=== PATIENT | male | born 1980 | race Caucasian/White ===

== ENCOUNTER 2016-12-12 22:44 | Emergency (ER) | payer SELFPAY ==
[~2016-12-12] VITALS: Ht 162.6 cm; Wt 82.5 kg
[2016-12-12 22:56] VITALS: Ht 162.6 cm; Wt 82.5 kg
[2016-12-13] MEDS ORDERED: LIDOCAINE 1%/EPI 30 ML INJ INJ STA
[2016-12-13] MEDS ORDERED: HYDROCODONE/APAP (5/325) TAB PO ONE (01:00)
[2016-12-13] MEDS ORDERED: LIDOCAINE 2%/EPI MPF (SDV) 20 ML VIAL INJ SCH (01:00)
--- NOTE | 2016-12-13 02:15 | RADRPT ---
PROCEDURE: CT head, without contrast. CLINICAL INDICATION: Blunt trauma to the left head. TECHNIQUE: Noncontrast CT examination of the head, with axial, sagittal and coronal reformatted im ages. Automated dose exposure control was employed. CTDI: 43.68 and DLP: 720.23. COMPARISON: None. FINDINGS: High left subcutaneous scalp hematoma and laceration. Note acute hemorrhage. Subarachnoid spaces are substantially preserved and symmetric. Ventricles are unremarkable. No mass effect. Carl-white matter distinction is preserved without evident decreased attenuation t o suggest acute or recent infarct. Sinuses and osseous structures are unremarkable. IMPRESSION: 1. High left subcutaneous scalp hematoma and laceration. 2. Otherwise, no acute process in the head. RPTAT: UU Physician Sarath Date Time Electronically viewed and signed by Physician Sarath on 12/13/2016 02:15 /
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
[2016-12-13] MEDS ORDERED: ACET500C5 PO (02:27)
[2016-12-13] MEDS ORDERED: CEPH-443 PO (02:27)
[2016-12-13 02:35] VITALS: PULSE 85; RESP 18; TEMP 98.1
== END 2016-12-13 02:40 | disposition home or self-care (01) ==
LOC: FTE 22:44
DX: S01.01XA Laceration without foreign body of scalp, initial encounter (principal); S09.90XA Unspecified injury of head, initial encounter; W01.198A Fall on same level from slipping, tripping and stumbling with subsequent striking against other object, initial encounter; Y92.039 Unspecified place in apartment as the place of occurrence of the external cause
CPT/HCPCS: 70450

== ENCOUNTER 2016-12-14 11:00 | Emergency (ER) | payer SELFPAY ==
[~2016-12-14] VITALS: Ht 165.1 cm; Wt 80.5 kg
[~2016-12-14 11:00] MED LIST: ACET500C5 PO; CEPH-443 PO
[2016-12-14 11:10] VITALS: Ht 165.1 cm; Wt 80.5 kg
--- NOTE | 2016-12-14 12:31 | ERD ---
ER Documentation Chief Complaint Date/Time DATE: 12/14/16 TIME: 12:23 Chief Complaint 2 day wound check HPI This 36-year-old male presents to the emergency department today for a wound check of a laceration that he sustained 2 days ago on the top of his head after reportedly falling into a railing while doing some magnus in his house. States he has not picked up his prescription for Keflex. Denies any fevers or chills, dizziness, blurred vision, headache. ROS All systems reviewed and are negative except as per history of present illness. Medications Home Meds Active Scripts Acetaminophen* (Tylophen*) 500 Mg Capsule, 1 CAP PO Q6H Y for PAIN AND OR ELEVATED TEMP, #30 CAP Prov:JANUSZ GREEN PA-C 12/13/16 Cephalexin* (Keflex*) 500 Mg Capsule, 500 MG PO QID for 7 Days, CAP Prov:JANUSZ GREEN PA-C 12/13/16 Allergies Allergies: Coded Allergies: No Known Allergy (Unverified , 12/13/16) PMhx/Soc Medical and Surgical Hx: pt denies Medical Hx, pt denies Surgical Hx Hx Alcohol Use: No Hx Substance Use: No Hx Tobacco Use: No Smoking Status: Never smoker Physical Exam Vitals Vital Signs Date Time Temp Pulse Resp B/P Pulse Ox O2 Delivery O2 Flow Rate FiO2 12/14/16 11:10 98.1 93 18 136/81 98 Physical Exam Const: No acute distress Head: Evidence of 11 sutures placed top of head. Wound appears to be healing well and well approximated. No evidence of purulent drainage. Abrasion left side of face close to left eye Eyes: Normal Conjunctiva. PERRLA. EOM intact. Ecchymosis left orbit. Mild tenderness palpation. ENT: Normal External Ears, Nose and Mouth. Mild tenderness to palpation nasal bone Neck: Full range of motion..~ No meningismus. Resp: Clear to auscultation bilaterally Cardio: Regular rate and rhythm, no murmurs Skin: Ecchymosis around left orbit. Evidence of 11 sutures placed top of head. Wound appears to be healing well and well approximated. Evidence of dried blood. No purulent drainage. Back: No midline or flank tenderness Ext: No cyanosis, or edema Neur: Awake and alert Psych: Normal Mood and Affect Procedures/MDM This a 36-year-old male who presents the emergency department today for a wound check of sutures he had placed on the top of his head 2 days ago after sustaining an injury in which he reportedly fell into a railing. I did see this patient and suture the patient 2 days ago. Patient has not yet picked up his prescription for Keflex. He has been afebrile and otherwise well- appearing. There is no purulent drainage wound appears to be healing well and is well approximated. Low suspicion for sepsis, deep space infection however I have encouraged the patient to go and sisal picker his prescription for Keflex. Patient had initially refused a head CT scan 2 days ago however eventually agreed to it. There was no evidence of acute hemorrhage. There was evidence of a hematoma. Today on physical exam there is evidence of orbital ecchymosis around his left eye with mild tenderness palpation as well as along his nasal bones. This was not evident on patient's initial exam and patient did not report any facial pain initial presentation. I explained to the patient that he may benefit from a CT scan of his facial bones given the trauma however patient has refused. I have explained to the patient I cannot rule out any facial fracture at this time without evidence of the CT scan. Patient understood. Patient agreed to sign an AMA form refusal for the CT scan. Patient was instructed to return in the next 5-6 days for suture removal. Patient understood. Departure Diagnosis: Primary Impression: Encounter for wound re-check Condition: Fair Patient Instructions: [place] Form- 1, Wound Check, Lac F/U (No Infection) Referrals: [facility] YOU HAVE RECEIVED A MEDICAL SCREENING EXAM AND THE RESULTS INDICATE THAT YOU DO NOT HAVE A CONDITION THAT REQUIRES URGENT TREATMENT IN THE EMERGENCY DEPARTMENT. FURTHER EVALUATION AND TREATMENT OF YOUR CONDITION CAN WAIT UNTIL YOU ARE SEEN IN YOUR DOCTORS OFFICE WITHIN THE NEXT 1-2 DAYS. IT IS YOUR RESPONSIBILITY TO MAKE AN APPOINTMENT FOR FOLOW-UP CARE. IF YOU HAVE A PRIMARY DOCTOR --you should call your primary doctor and schedule an appointment IF YOU DO NOT HAVE A PRIMARY DOCTOR YOU CAN CALL OUR PHYSICIAN REFERRAL HOTLINE AT IF YOU CAN NOT AFFORD TO SEE A PHYSICIAN YOU CAN CHOSE FROM THE FOLLOWING [facility] CL[facility]ICS [facility] [address] [facility]. [facility] [address] [facility]. [facility] [address] [facility]. [facility] [address] [facility]. [facility] [address] [facility]. [facility]. [address] Additional Instructions: Call your primary care doctor TOMORROW for an appointment during the next 1-2 days.See the doctor sooner or return here if your condition worsens before your appointment time. Suture removal in 5-6 days cupola worker your prescription for antibiotic JANUSZ GREEN PA-C December 14, 2016 12:31
== END 2016-12-14 12:38 | disposition home or self-care (01) ==
LOC: FTE 11:00
DX: Z48.01 Encounter for change or removal of surgical wound dressing (principal)
CPT/HCPCS: 99281

== ENCOUNTER 2016-12-19 14:58 | Emergency (ER) | payer MEDICAID ==
[~2016-12-19] VITALS: Ht 167.6 cm; Wt 78.0 kg
[2016-12-19 15:02] VITALS: Ht 167.6 cm; Wt 78.0 kg
--- NOTE | 2016-12-19 16:45 | ERD ---
ER Documentation Chief Complaint Date/Time DATE: 12/19/16 TIME: 16:44 Chief Complaint scalp suture removal HPI 36-year-old male presents for evaluation for suture removal in scalp laceration sustained 6 days ago. He denies fevers, vomiting, shortness of the chest pain. ROS All systems reviewed and are negative except as per history of present illness. Medications Home Meds Active Scripts Acetaminophen* (Tylophen*) 500 Mg Capsule, 1 CAP PO Q6H Y for PAIN AND OR ELEVATED TEMP, #30 CAP Prov:JANUSZ GREEN PA-C 12/13/16 Cephalexin* (Keflex*) 500 Mg Capsule, 500 MG PO QID for 7 Days, CAP Prov:JANUSZ GREEN PA-C 12/13/16 Allergies Allergies: Coded Allergies: No Known Allergy (Unverified , 12/13/16) PMhx/Soc Medical and Surgical Hx: pt denies Medical Hx, pt denies Surgical Hx Hx Alcohol Use: No Hx Substance Use: No Hx Tobacco Use: No Physical Exam Vitals Vital Signs Date Time Temp Pulse Resp B/P Pulse Ox O2 Delivery O2 Flow Rate FiO2 12/19/16 15:02 97.7 76 18 124/76 99 Physical Exam Const: [] Alert, not ill-appearing. Head: There is a large hematoma on the left frontal area of the scalp with sutures intact. Is no erythema, bleeding or discharge appreciated. Eyes: Normal Conjunctiva ENT: Normal External Ears, Nose and Mouth. Neck: Full range of motion..~ No meningismus. Resp: Clear to auscultation bilaterally Cardio: Regular rate and rhythm, no murmurs Abd: Soft, non tender, non distended. Normal bowel sounds Skin: No petechiae or rashes Back: No midline or flank tenderness Ext: No cyanosis, or edema Neur: Awake and alert Psych: Normal Mood and Affect Procedures/MDM Patient presents for evaluation of a wound on his scalp. It appears to really for suture removal given the significant hematoma underneath as it likely at risk for dehiscence. I'm recommending additional 4 more days of sutures in removing them a reevaluation and for days. He should return sooner for fevers, redness, new or worsening symptoms. Patient displays no signs or symptoms of occasions of head injury. There is no evidence of bacterial infection. Departure Diagnosis: Primary Impression: Suture check Condition: Stable Patient Instructions: Suture Care Additional Instructions: Suture removal proximately 4 more days. MAHSA ALVARADO MD December 19, 2016 16:45
== END 2016-12-19 17:26 | disposition home or self-care (01) ==
LOC: FTE 14:58
DX: Z48.01 Encounter for change or removal of surgical wound dressing (principal)
CPT/HCPCS: 99281

== ENCOUNTER 2016-12-26 16:19 | Emergency (ER) | payer MEDICAID ==
[~2016-12-26] VITALS: Ht 165.1 cm; Wt 72.0 kg
[2016-12-26 16:23] VITALS: Ht 165.1 cm; Wt 72.0 kg
--- NOTE | 2016-12-26 17:02 | ERD ---
ER Documentation Chief Complaint Date/Time DATE: 12/26/16 TIME: 16:53 Chief Complaint pt bib self for suture removal to head HPI Patient is a 36-year-old male who presents emergency department for suture removal. Patient sustained a laceration on 12-12-16 after slip and fall injury. Patient denies any bleeding or discharge from the affected area. Patient denies any headache, nausea, vomiting, dizziness, blurry vision, confusion, sleepiness or loss of consciousness. Patient denies any complaints at this time. She is up-to-date with his tetanus vaccination. ROS All systems reviewed and are negative except as per history of present illness. Medications Home Meds Active Scripts Acetaminophen* (Tylophen*) 500 Mg Capsule, 1 CAP PO Q6H Y for PAIN AND OR ELEVATED TEMP, #30 CAP Prov:JANUSZ GREEN PA-C 12/13/16 Cephalexin* (Keflex*) 500 Mg Capsule, 500 MG PO QID for 7 Days, CAP Prov:JANUSZ GREEN PA-C 12/13/16 Allergies Allergies: Coded Allergies: No Known Allergy (Unverified , 12/13/16) PMhx/Soc Medical and Surgical Hx: pt denies Medical Hx, pt denies Surgical Hx History of Surgery: No Anesthesia Reaction: No Hx Neurological Disorder: No Hx Respiratory Disorders: No Hx Cardiac Disorders: No Hx Psychiatric Problems: No Hx Miscellaneous Medical Probl: No Hx Alcohol Use: No Hx Substance Use: No Hx Tobacco Use: No FmHx Family History: No diabetes Physical Exam Vitals Vital Signs Date Time Temp Pulse Resp B/P Pulse Ox O2 Delivery O2 Flow Rate FiO2 12/26/16 16:23 97.3 80 16 156/88 98 Physical Exam GENERAL: Well-developed, well-nourished male. Appears in no acute distress. HEAD: Normocephalic, atraumatic. 6 cm laceration noted to the left parietal scalp. No wound dehiscence noted. No redness, swelling, active bleeding or discharge noted. Wound appears to be scabbed over with [address] EYES: Pupils are equally reactive bilaterally. EOMs grossly intact. No conjunctival erythema. ENT: Moist mucous membranes. No uvula deviation. No kissing tonsils. NECK: Supple. No meningismus. Normal range of motion of the neck. LUNG: Clear to auscultation bilaterally. No rhonchi, wheezing, rales or coarse breath sounds. HEART: Regular rate and rhythm. No murmurs, rubs or gallops.. EXTREMITIES: Equal pulses bilaterally. No peripheral clubbing, cyanosis or edema. No unilateral leg swelling. NEUROLOGIC: Alert and oriented. Moving all four extremities without any difficulty. Normal speech. Steady gait. SKIN: Normal color. Warm and dry. No rashes or lesions. Procedures/MDM MEDICAL DECISION MAKING: This is a 36-year-old male who presents for suture removal after sustaining a laceration to his head on 12-12-16.. Vital signs were reviewed. Patient is afebrile. The wound appears to be healing well with no concerns of acute infection at this time. No wound drainage or wound dehiscence noted. 11 sutures were removed without any difficulty. Wound remained intact. Tetanus is up-to-date. Post-procedural wound care was discussed with the patient. At this time the patient's presentation is consistent with suture removal. Low suspicion for wound dehiscence, cellulitis, abscess, vascular injury, or neurologic injury. DISCHARGE: At this time, the patient is stable for discharge and outpatient management. Post-procedural wound care was discussed with the patient. I have instructed the patient to promptly return to the ER for any new or worsening symptoms including increasing pain, fever, warmth, redness or swelling. The patient and/ or family expressed understanding of and agreement with this plan. All questions were answered. Home care instructions were provided. Departure Diagnosis: Primary Impression: Encounter for removal of sutures Condition: Stable Patient Instructions: Suture Removal, No Complication Referrals: [facility] YOU HAVE RECEIVED A MEDICAL SCREENING EXAM AND THE RESULTS INDICATE THAT YOU DO NOT HAVE A CONDITION THAT REQUIRES URGENT TREATMENT IN THE EMERGENCY DEPARTMENT. FURTHER EVALUATION AND TREATMENT OF YOUR CONDITION CAN WAIT UNTIL YOU ARE SEEN IN YOUR DOCTORS OFFICE WITHIN THE NEXT 1-2 DAYS. IT IS YOUR RESPONSIBILITY TO MAKE AN APPOINTMENT FOR FOLOW-UP CARE. IF YOU HAVE A PRIMARY DOCTOR --you should call your primary doctor and schedule an appointment IF YOU DO NOT HAVE A PRIMARY DOCTOR YOU CAN CALL OUR PHYSICIAN REFERRAL HOTLINE AT IF YOU CAN NOT AFFORD TO SEE A PHYSICIAN YOU CAN CHOSE FROM THE FOLLOWING [facility] [address] [facility]. [facility] [address] [facility] [facility] [address] [facility] [address] [facility]. [facility] [address] [facility]. [facility] [address] [facility]. [facility] YOU HAVE RECEIVED A MEDICAL SCREENING EXAM AND THE RESULTS INDICATE THAT YOU DO NOT HAVE A CONDITION THAT REQUIRES URGENT TREATMENT IN THE EMERGENCY DEPARTMENT. FURTHER EVALUATION AND TREATMENT OF YOUR CONDITION CAN WAIT UNTIL YOU ARE SEEN IN YOUR DOCTORS OFFICE WITHIN THE NEXT 1-2 DAYS. IT IS YOUR RESPONSIBILITY TO MAKE AN APPOINTMENT FOR FOLOW-UP CARE. IF YOU HAVE A PRIMARY DOCTOR --you should call your primary doctor and schedule and appointment IF YOU DO NOT HAVE A PRIMARY DOCTOR YOU CAN CALL OUR PHYSICIAN REFERRAL HOTLINE AT . IF YOU CAN NOT AFFORD TO SEE A PHYSICIAN YOU CAN CHOSE FROM THE FOLLOWING [facility] IN[facility]UTIONS: [facility] [address] [place] [address] [facility] [address] [place] [address] [facility] + [facility] [address] [place] [address] Additional Instructions: Call your primary care doctor TOMORROW for an appointment during the next 1-2 days.See the doctor sooner or return here if your condition worsens before your appointment time. FAUZIA CHARLTON PA-C December 26, 2016 17:02
== END 2016-12-26 17:22 | disposition home or self-care (01) ==
LOC: FTE 16:19
DX: Z48.02 Encounter for removal of sutures (principal)
CPT/HCPCS: 99281

== ENCOUNTER 2017-03-12 14:11 | Emergency (ER) | payer MEDICAID, OTHER ==
[~2017-03-12] VITALS: Ht 165.1 cm; Wt 83.5 kg
[2017-03-12 14:17] VITALS: Ht 165.1 cm; Wt 83.5 kg
--- NOTE | 2017-03-12 15:20 | RADRPT ---
PROCEDURE: CT Brain without contrast. CLINICAL INDICATION: Neurologic deficit TECHNIQUE: A CT of the brain was performed on multidetector high-resolution CT scanner utilizing a xial sections from the skull base through the vertex without contrast. One or more of the following dose reduction techniques were used: Automated exposure control, Adjustment of the mA and/or kV acc ording to patient size, and/or use of iterative reconstruction technique. DOSE: CTDI = 44 mGy and the DLP = 720 mGy-cm. COMPARISON: Head CT 12/13/2016 FINDINGS: No acute intracranial hemorrhage, significant mass effect or midline shift. The tidwell-white different iation is grossly preserved. The ventricles are normal in size for age. No significant opacification of the visualized paranasal sinuses or mastoids. Left posterior frontal scalp swelling at the site of prior hematoma. IMPRESSION: No acute intracranial findings. RPTAT: AA .Rambo Kincaid MD, MD Date Time Electronically viewed and signed by .Rambo Kincaid MD, on 03/12/2017 15:19 .T/
--- NOTE | 2017-03-12 15:21 | RADRPT ---
PROCEDURE: CT Cervical Spine without contrast. CLINICAL INDICATION: Trauma, neck pain. TECHNIQUE: A CT of the cervical spine was performed on a multidetector CT scanner utilizing high-r esolution axial imaging from the skull base through the cervical thoracic junction. Sagittal and co seble reconstructions were performed. CTDI: 22 mGy. DLP: 443 mGycm. One or more of the following dose reduction techniques were used: Automated exposure control, Adjustment of the mA and/or kV acc ording to patient size, and/or use of iterative reconstruction technique. COMPARISON: None available. FINDINGS: There is mild straightening of the normal lordosis of the cervical spine. No acute cervical vertebr al fracture or subluxation. The prevertebral soft tissues are unremarkable. No bony spinal canal or bony foraminal narrowing visualized. IMPRESSION: Mild straightening of the cervical lordosis. No acute cervical vertebral fracture or subluxation. RPTAT: AA .Rambo Kincaid MD, MD Date Time Electronically viewed and signed by .Rambo Kincaid MD, on 03/12/2017 15:21 .T/
[2017-03-12] MEDS ORDERED: LORA-441 PO (15:32)
[2017-03-12] MEDS ORDERED: ACET500C5 PO (15:32)
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
== END 2017-03-12 16:11 | disposition home or self-care (01) ==
LOC: FTE 14:11
DX: R51 Headache (principal); R20.2 Paresthesia of skin
CPT/HCPCS: 70450; 72125; Z7502